=== PATIENT | male | born 1955 | race Caucasian/White ===

== ENCOUNTER 2019-08-30 05:42 | Outpatient (CLI) | payer OTHER ==
[~2019-08-30] VITALS: Ht 188 cm; Wt 98.7 kg
== END 2019-08-30 10:30 | disposition home or self-care (01) ==
LOC: PREOP 05:42
PROVIDERS: ATTEND Surgery
DX: Z01.818 Encounter for other preprocedural examination (principal)

== ENCOUNTER 2019-09-01 06:57 | Day surgery (SDC) | payer OTHER ==
[~2019-09-01] VITALS: Ht 188 cm; Wt 98.7 kg
[2019-09-01] VITALS (13 sets, daily range): BP systolic 115–147; BP diastolic 74–92
[2019-09-01] MEDS ORDERED: LACTATED RINGERS 1,000 ML IV PRN (07:28)
[2019-09-01] MEDS ORDERED: ceFAZolin 2 GM IV Premixed 50 ML IV ONE (07:30)
[2019-09-01 07:39] LABS: BASOPHILS % (AUTO) 1 % (0-10); EOSINOPHILS # (AUTO) 0.1 10^3/uL (0.0-0.3); EOSINOPHILS % (AUTO) 2 % (0-10); HEMATOCRIT 45 % (40-54); HEMOGLOBIN 15.5 G/DL (13.3-17.7); LYMPHOCYTES # (AUTO) 1.1 X 10^3 (1.0-4.0); LYMPHOCYTES % (AUTO) 16 % (12-44); MEAN CORPUSCULAR HEMOGLOBIN 31 PG (25-34); MEAN CORPUSCULAR HGB CONC 35 G/DL (32-36); MEAN CORPUSCULAR VOLUME 88 FL (80-99); MEAN PLATELET VOLUME 9.7 FL (7.4-10.4); MONOCYTES # (AUTO) 0.6 X 10^3 (0.0-1.0); MONOCYTES % (AUTO) 9 % (0-12); NEUTROPHILS % (AUTO) 73 % (42-75); PLATELET COUNT 233 10^3/uL (130-400); RED CELL DISTRIBUTION WIDTH 12.4 % (10.0-14.5); WHITE BLOOD COUNT 6.9 10^3/uL (4.3-11.0)
[2019-09-01] MEDS ORDERED: BUP/EPI 0.5% 1:200,000 (SENSORCAINE) 30 ML VIAL ONE (07:53)
[2019-09-01] MEDS ORDERED: MIDAZOLAM 2 MG/2 ML (VERSED) VIAL ONE (08:06)
[2019-09-01] MEDS ORDERED: ONDANSETRON 4 MG/2 ML (SDV) Z0FRAN ONE (08:06)
[2019-09-01] MEDS ORDERED: LIDOCAINE PF 2% 5 ML (XYLOCAINE) VIAL ONE (08:06)
[2019-09-01] MEDS ORDERED: fentaNYL INJECTION 100 MCG/2 ML AMP ONE (08:06)
[2019-09-01] MEDS ORDERED: proPOfol 200 MG/20 ML (DIPRIVAN) VIAL IV ONE (08:06)
[2019-09-01] MEDS ORDERED: ROCURONIUM 10 MG/ML 5 ML SYRINGE IV ONE (08:06)
[2019-09-01] MEDS ORDERED: SEVOFLURANE (ULTANE) 15 ML INHAL SOLN ONE ×5 (08:07→10:20)
--- NOTE | 2019-09-01 08:20 | Progress Note-Pre Operative ---
Pre-Operative Progress Note H&P Reviewed The H&P was reviewed, patient examined and no changes noted. Date Seen by Provider: Sep 01, 2019 Time Seen by Provider: 08:20 Date H&P Reviewed: Sep 01, 2019 Time H&P Reviewed: 08:15 Pre-Operative Diagnosis: Right Inguinal hernia and Screening colonoscopy GOOD HUERTAS APRN Sep 01, 2019 08:20
[2019-09-01] MEDS ORDERED: HYDR-3816 PO (08:23)
--- NOTE | 2019-09-01 08:23 | Discharge Inst-Surgical ---
D/C Lap Instructions-KIDO Reconcile Patient Problems Problems Reviewed?: Yes New, Converted, or Re-Newed RX: RX on Chart Follow Up Appt in 2 weeks Activity as tolerated No driving for 24 hours No driving while on pain medications Incentive Spirometry use every 2 hours while awake Regular Diet Symptoms to Report: Fever over 101 degree F, Nausea/Vomiting Infection Signs and Symptoms to report: Increased redness, Foul odor of wound, Increased drainage Bathing instructions: May shower Operative Area Clean/Dry; Keep incision clean/dry If any problems/questions: Contact your physician or go to Emergency Room GOOD HUERTAS APRN Sep 01, 2019 08:23
[2019-09-01] MEDS ORDERED: ACETAMINOPHEN 325 MG TABLET PO PRN (08:30)
[2019-09-01] MEDS ORDERED: HYDROcodone/APAP 5 MG/325 MG (LORTAB) TAB PO ONE (08:30)
[2019-09-01] MEDS ORDERED: morphine INJ 10 MG/ML 1ML (SYR OR VIAL) IVP PRN (08:30)
[2019-09-01] MEDS ORDERED: ONDANSETRON 4 MG/2 ML (SDV) Z0FRAN IVP PRN ×2 (08:30→10:45)
--- NOTE | 2019-09-01 10:21 | Progress Note-Post Operative ---
Post-Operative Progess Note Surgeon (s)/Warp Dresser (s) Surgeon Dr. Spencer Reyes M.D. Warp Dresser: Mono Huertas APRN Pre-Operative Diagnosis Right Inguinal hernia and Screening colonoscopy Post-Operative Diagnosis Right direct inguinal hernia, Normal colon and rectum Procedure & Operative Findings Date of Procedure 09/01/19 Procedure Performed/Findings Laparoscopic right inguinal hernia repair with mesh and screening colonoscopy Anesthesia Type GET Estimated Blood Loss Estimated blood loss (mL): Minimal Specimens/Packing Specimens Removed None MONO HUERTAS WATERSHED MANAGER Sep 01, 2019 10:21
[2019-09-01] MEDS ORDERED: MEPERIDINE (DEMEROL) INJ 50 MG/ML IVP ONE (10:45)
[2019-09-01] MEDS ORDERED: morphine INJ 10 MG/ML 1ML (SYR OR VIAL) IVP ONE (10:45)
[2019-09-01] MEDS ORDERED: PROMETHAZINE INJ 25 MG/ML (PHENERGAN) AMP IVP ONE (10:45)
[2019-09-01] MEDS ORDERED: KETOROLAC 30 MG/ML VIAL IVP ONE (10:45)
[2019-09-01] MEDS ORDERED: HYDROmorphone 2 MG/ML VIAL (DILAUDID) IV ONE (10:45)
[2019-09-01] MEDS ORDERED: KETOROLAC 30 MG/ML VIAL ONE (10:51)
[2019-09-01] MEDS ORDERED: HYDROcodone/APAP 5 MG/325 MG (LORTAB) TAB ONE (12:38)
--- NOTE | 2019-09-01 13:26 | OPERATIVE REPORT ---
DATE OF SERVICE: 09/01/2019 PREOPERATIVE DIAGNOSES: 1. Symptomatic right inguinal hernia. 2. Screening colonoscopy. POSTOPERATIVE DIAGNOSES: 1. Symptomatic reducible right direct inguinal hernia. 2. Normal rectum and colon. PROCEDURES: 1. Laparoscopic right inguinal hernia repair with mesh. 2. Colonoscopy. SURGEON: Christian Champion MD TRAVEL COUNSELOR: Mono Raza APRN ANESTHESIA: General endotracheal. ESTIMATED BLOOD LOSS: Minimal. FINDINGS: Right direct inguinal hernia, nothing within the hernia sac. Normal rectum and colon. DISPOSITION: The patient tolerated the procedure well. 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 The lesion grew larger in size. He states he is otherwise doing well, having normal bowel movements and tolerating a regular diet. He is also in need of a screening colonoscopy. He has not had a colonoscopy up to this point in his life. He does not report any red blood per rectum nor any dark tarry stools as well as no family history of colon cancer. DESCRIPTION OF PROCEDURE: The patient was brought to the operating room, laid supine on the table. The infraumbilical rim was then anesthetized using 0.5% Marcaine with epinephrine and a transverse skin incision made using a 15 blade. The abdominal wall was then retracted anteriorly using a sharp towel clamp and a Veress needle inserted with low opening pressure of 0 mmHg and the abdomen was insufflated to 15 mmHg pressure. The Veress needle removed and a 10 mm XL trocar placed followed by a 10 mm 45-degree angle laparoscope visualizing the peritoneal cavity. A 4-quadrant abdominal exploration was performed. A significant sized right direct inguinal hernia identified. There was nothing within the hernia sac. There was no left inguinal hernia component. We then proceeded to place bilateral 5 mm ports under direct visualization after the skin and peritoneal lining were anesthetized using 0.5% Marcaine with epinephrine and a transverse skin incision was made using a 15 blade. The patient was then placed in Trendelenburg position. A mesenteric lining was then opened laterally towards the conjoint tendon and inguinal ligament laterally. We then proceeded medially to Joseph's ligament. We then proceeded with dissection of the entire hernia sac using blunt dissection as well as the Sonicision with visualization of good hemostasis. The cord and its surrounding contents identified and spared throughout the process. Good hemostasis was observed and a large 3DMax polypropylene mesh was placed into the peritoneal cavity through the 10 mm port site. The mesh was then tacked to Joseph's ligament medially and conjoint tendon laterally. The entire peritoneal lining was then placed over the mesh and a few absorbable tacks placed to hold this in place with visualization of good hemostasis. The 10 mm port site fascia and peritoneum were then closed under direct visualization using a Yaakov-Luly device and 0 Vicryl suture. The abdomen was desufflated and remaining ports removed. All skin incisions were closed using 4-0 Monocryl running subcuticular sutures. Under the same anesthesia, we then proceeded with colonoscopy portion of the procedure. The patient was then placed in frog leg position and a digital rectal examination was performed, which did not reveal any significant hemorrhoids. Normal sphincter tone was felt and the prostate gland was palpable and appeared normal. The endoscope was then intubated to the anus and rectum gently insufflated. The endoscope was then advanced to the valves of Wiggins of the rectum with no polyps or any neoplasms identified. We then proceeded through the sigmoid colon where no diverticulosis identified. The endoscope was then advanced to the remainder of the descending, transverse and ascending colon to the cecum. These segments were normal. There were no polyps or any neoplasms identified throughout the colon or rectum. Endoscope was then slowly withdrawn while taking a second look and suctioning residual air with no additional findings. The patient tolerated the procedure well. We will recommend continued medical management with a high fiber diet with at least 30 grams of fiber daily as well as significant amounts of water to promote soft stools on a daily basis. He does not need another colonoscopy for another 10 years. Job ID: [id number] DocumentID: [id number] Dictated Date: 09/01/2019 10:40:36 Winch Runner Date: 09/01/2019 13:25:57 Dictated By: CHRISTIAN CHAMPION MD
--- NOTE | 2019-09-01 14:15 | Anesthesia-General Post-Op ---
General Patient Condition Mental Status/LOC: Same as Preop Cardiovascular: Satisfactory Nausea/Vomiting: Absent Respiratory: Satisfactory Pain: Controlled Complications: Absent Post Op Complications Complications None Follow Up Care/Instructions Patient Instructions None needed. Anesthesia/Patient Condition Patient Condition Patient was seen after the procedure and he was doing well, no complaints, stable vital signs, no apparent adverse anesthesia problems. KATE BURNS DO Sep 01, 2019 14:15
== END 2019-09-01 13:05 | disposition home or self-care (01) ==
LOC: SDC 06:57
PROVIDERS: ATTEND Surgery
DX: Z12.11 Encounter for screening for malignant neoplasm of colon (principal); K40.90 Unilateral inguinal hernia, without obstruction or gangrene, not specified as recurrent; K21.9 Gastro-esophageal reflux disease without esophagitis; F17.290 Nicotine dependence, other tobacco product, uncomplicated; Z82.49 Family history of ischemic heart disease and other diseases of the circulatory system
CPT/HCPCS: 36415; 85025; 87081

== ENCOUNTER 2020-08-30 10:21 | Observation (INO) | payer OTHER ==
[~2020-08-30] VITALS: Ht 188 cm; Wt 98.6 kg
[~2020-08-30 10:21] MED LIST: HYDR-34 PO
--- NOTE | 2020-08-30 10:35 | ED General ---
General Stated Complaint: IRREGULAR HEART BEAT/SOB Source of Information: Patient Exam Limitations: No Limitations History of Present Illness Date Seen by Provider: Aug 30, 2020 Time Seen by Provider: 10:32 Initial Comments To ER with reports of palpitations and shortness of breath. Has had a slight cough. 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 He doesn't have a primary care provider so he presented to [facility] urgent care. He was given aspirin and referred to the emergency room. He did povidone swab there that was negative. His symptoms began yesterday. No fevers. Takes no medications.Given 5 baby aspirin at [facility] urgent care he states. He does have chest pressure, describes it as a heaviness as if it's difficult to take a deep breath but states "I don't have chest pain". Timing/Duration: 1-2 Days Severity: Moderate Associated Systoms: Shortness of Air Allergies and Home Medications Allergies Coded Allergies: No Known Drug Allergies (Unverified , 08/30/19) Home Medications Hydrocodone Bit/Acetaminophen 1 Each Tablet, 1-2 TAB PO Q4H Prescribed by: GOOD HUERTAS on 09/01/19 0823 Patient Home Medication List Home Medication List Reviewed: Yes Review of Systems Review of Systems Constitutional: see HPI; No chills, No fever EENTM: see HPI Respiratory: no symptoms reported Cardiovascular: no symptoms reported Genitourinary: no symptoms reported Musculoskeletal: no symptoms reported Skin: no symptoms reported Psychiatric/Neurological: No Symptoms Reported Hematologic/Lymphatic: No Symptoms Reported Immunological/Allergic: no symptoms reported Past Wdqnvlj-Ootpuw-Achalf Hx Patient Social History Recent Foreign Travel: No Contact w/Someone Who Travel: No Recent Hopitalizations: No Seasonal Allergies Seasonal Allergies: No Past Medical History Surgeries: No Respiratory: No Currently Using CPAP: No Currently Using BIPAP: No Cardiac: No (murmur when young) Neurological: No Genitourinary: No Gastrointestinal: No Musculoskeletal: No Endocrine: No HEENT: No Cancer: No Psychosocial: No Integumentary: No Blood Disorders: No Physical Exam Vital Signs Vital Signs - First Documented 08/30/20 10:21 Temp 36.6 Pulse 112 Resp 18 B/P (MAP) 138/93 (108) Pulse Ox 98 O2 Delivery Room Air Capillary Refill : Height, Weight, BMI Height: '" Weight: lbs. oz. kg; 27.92 BMI Method: General Appearance: No Apparent Distress, WD/WN Eyes: Bilateral Eye Normal Inspection, Bilateral Eye PERRL, Bilateral Eye EOMI Neck: Full Range of Motion, Normal Inspection Respiratory: No Accessory Muscle Use, No Respiratory Distress Cardiovascular: Irregularly Irregular, Other (atrial fibrillation with a rate in the 80s) Gastrointestinal: Normal Bowel Sounds, Non Tender, Soft Extremity: Normal Capillary Refill, Normal Inspection Neurologic/Psychiatric: Alert, Oriented x3 Skin: Normal Color, Warm/Dry Progress/Results/Core Measures Suspected Sepsis SIRS Temperature: Pulse: Respiratory Rate: Laboratory Tests 08/30/20 10:29: White Blood Count 10.7 Blood Pressure / Mean: Laboratory Tests 08/30/20 10:29: Creatinine 1.10, INR Comment 1.0, Platelet Count 286, Total Bilirubin 0.7 Results/Orders Lab Results Laboratory Tests Test 08/30/20 10:29 Range/Units White Blood Count 10.7 4.3-11.0 10^3/uL Red Blood Count 5.02 4.30-5.52 10^6/uL Hemoglobin 15.3 13.3-17.7 g/dL Hematocrit 46 40-54 % Mean Corpuscular Volume 92 80-99 fL Mean Corpuscular Hemoglobin 31 25-34 pg Mean Corpuscular Hemoglobin Concent 33 32-36 g/dL Red Cell Distribution Width 12.0 10.0-14.5 % Platelet Count 286 130-400 10^3/uL Mean Platelet Volume 9.5 9.0-12.2 fL Immature Granulocyte % (Auto) 1 % Neutrophils (%) (Auto) 74 42-75 % Lymphocytes (%) (Auto) 16 12-44 % Monocytes (%) (Auto) 8 0-12 % Eosinophils (%) (Auto) 1 0-10 % Basophils (%) (Auto) 1 0-10 % Neutrophils # (Auto) 7.9 H 1.8-7.8 10^3/uL Lymphocytes # (Auto) 1.8 1.0-4.0 10^3/uL Monocytes # (Auto) 0.8 0.0-1.0 10^3/uL Eosinophils # (Auto) 0.1 0.0-0.3 10^3/uL Basophils # (Auto) 0.1 0.0-0.1 10^3/uL Immature Granulocyte # (Auto) 0.1 0.0-0.1 10^3/uL Prothrombin Time 13.4 12.2-14.7 SEC INR Comment 1.0 0.8-1.4 Activated Partial Thromboplast Time 27 24-35 SEC D-Dimer < 0.27 0.00-0.49 UG/ML Sodium Level 142 135-145 MMOL/L Potassium Level 4.2 3.6-5.0 MMOL/L Chloride Level 105 98-107 MMOL/L Carbon Dioxide Level 26 21-32 MMOL/L Anion Gap 11 5-14 MMOL/L Blood Urea Nitrogen 19 H 7-18 MG/DL Creatinine 1.10 0.60-1.30 MG/DL Estimat Glomerular Filtration Rate > 60 BUN/Creatinine Ratio 17 Glucose Level 155 H 70-105 MG/DL Calcium Level 9.0 8.5-10.1 MG/DL Corrected Calcium 8.8 8.5-10.1 MG/DL Magnesium Level 1.8 1.6-2.4 MG/DL Total Bilirubin 0.7 0.1-1.0 MG/DL Aspartate Amino Transf (AST/SGOT) 21 5-34 U/L Alanine Aminotransferase (ALT/SGPT) 35 0-55 U/L Alkaline Phosphatase 58 40-136 U/L Myoglobin 59.9 10.0-92.0 NG/ML Troponin I < 0.028 <0.028 NG/ML B-Type Natriuretic Peptide 218.9 H <100.0 PG/ML Total Protein 6.7 6.4-8.2 GM/DL Albumin 4.3 3.2-4.5 GM/DL My Orders Orders - JEN LEÓN APRN Cbc With Automated Diff (08/30/20 10:31) Magnesium (08/30/20 10:31) Chest 1 View, Ap/Pa Only (08/30/20 10:31) Ekg Tracing (08/30/20 10:31) Comprehensive Metabolic Panel (08/30/20 10:31) Myoglobin Serum (08/30/20 10:31) Protime With Inr (08/30/20 10:31) Partial Thromboplastin Time (08/30/20 10:31) O2 (08/30/20 10:31) Monitor-Rhythm Ecg Trace Only (08/30/20 10:31) Lipid Panel (08/31/20 06:00) Ed Iv/Invasive Line Start (08/30/20 10:31) BNP (08/30/20 10:31) Fibrin Degradation Products (08/30/20 10:31) Troponin I (08/30/20 10:31) Metoprolol Tartrate Injection (Lopressor (08/30/20 10:45) Medications Given in ED Current Medications Medications Dose Ordered Sig/Rita Route Start Time Stop Time Status Last Admin Dose Admin Metoprolol Tartrate 5 mg ONCE ONCE IV 08/30/20 10:45 08/30/20 10:46 DC 08/30/20 10:46 5 MG Vital Signs/I&O 08/30/20 10:21 Temp 36.6 Pulse 112 Resp 18 B/P (MAP) 138/93 (108) Pulse Ox 98 O2 Delivery Room Air Capillary Refill : Departure Communication (Admissions) Time/Spoke to Admitting Phy: 11:[address] Valverde, patient does report quite a bit of caffeine intake, that would be the most likely cause of his atrial bigeminy but with the chest pressure that he describes as if it's difficult to take a deep breath, this does more further workup for ischemia. Impression Primary Impression: Atrial bigeminy Additional Impression: Chest pressure Disposition: ADMITTED INPATIENT Condition: Stable Admissions Decision to Admit Reason: Admit from ER (General) Decision to Admit/Date: Aug 30, 2020 Time/Decision to Admit Time: 11:26 Departure-Patient Inst. Referrals: NO,LOCAL PHYSICIAN (PCP) Primary Care Physician JEN LEÓN APRN Aug 30, 2020 10:35
[2020-08-30 10:38] LABS: BASOPHILS # (AUTO) 0.1 10^3/uL (0.0-0.1); BASOPHILS % (AUTO) 1 % (0-10); EOSINOPHILS # (AUTO) 0.1 10^3/uL (0.0-0.3); EOSINOPHILS % (AUTO) 1 % (0-10); HEMATOCRIT 46 % (40-54); HEMOGLOBIN 15.3 g/dL (13.3-17.7); LYMPHOCYTES # (AUTO) 1.8 10^3/uL (1.0-4.0); LYMPHOCYTES % (AUTO) 16 % (12-44); MEAN CORPUSCULAR HEMOGLOBIN 31 pg (25-34); MEAN CORPUSCULAR HGB CONC 33 g/dL (32-36); MEAN CORPUSCULAR VOLUME 92 fL (80-99); MEAN PLATELET VOLUME 9.5 fL (9.0-12.2); MONOCYTES # (AUTO) 0.8 10^3/uL (0.0-1.0); MONOCYTES % (AUTO) 8 % (0-12); NEUTROPHILS # (AUTO) 7.9 10^3/uL (1.8-7.8); NEUTROPHILS % (AUTO) 74 % (42-75); PLATELET COUNT 286 10^3/uL (130-400); WHITE BLOOD COUNT 10.7 10^3/uL (4.3-11.0)
[2020-08-30] MEDS ORDERED: meTOprolol 5 MG/5 ML (LOPRESSOR) VIAL IV ONE ×2 (10:45→12:15)
[2020-08-30 10:46] LABS: ALBUMIN 4.3 GM/DL (3.2-4.5)
[2020-08-30 10:47] LABS: CHLORIDE 105 MMOL/L (98-107); POTASSIUM 4.2 MMOL/L (3.6-5.0); PROTHROMBIN TIME PATIENT 13.4 SEC (12.2-14.7); SODIUM 142 MMOL/L (135-145)
[2020-08-30 10:49] LABS: GLUCOSE 155 MG/DL (70-105); TOTAL PROTEIN 6.7 GM/DL (6.4-8.2)
[2020-08-30 10:50] LABS: CARBON DIOXIDE 26 MMOL/L (21-32)
[2020-08-30 10:51] LABS: BILIRUBIN,TOTAL 0.7 MG/DL (0.1-1.0)
[2020-08-30 10:52] LABS: ALKALINE PHOSPHATASE 58 U/L (40-136)
[2020-08-30 10:53] LABS: GFR ESTIMATED > 60
[2020-08-30 10:54] LABS: BUN/CREATININE RATIO 17
[2020-08-30 10:55] LABS: ALANINE AMINOTRANSFERASE 35 U/L (0-55); MAGNESIUM 1.8 MG/DL (1.6-2.4)
--- NOTE | 2020-08-30 11:03 | Diagnostic Imaging Report ---
INDICATION: Chest tightness FINDINGS: The lungs are clear. No failure, effusion or pneumothorax. IMPRESSION: No acute appearing abnormality. Dictated by: Dictated on workstation # [id number]
--- NOTE | 2020-08-30 12:08 | NUR ---
DR BACON HERE ECHO DONE AT BEDSIDE.
--- NOTE | 2020-08-30 12:27 | NUR ---
PATIENT CALLED AND UPDATED HER
--- NOTE | 2020-08-30 13:05 | Consultation-Cardiology ---
HPI-Cardiology Cardiology Consultation Date of Consultation 08/30/20 Date of Admission Time Seen by Provider: 13:00 Indication: chest pain HPI 64 years old gentleman with no significant past medical history, has been having increasing dyspnea on exertion, went to the urgent care for evaluation where he was noted to have frequent irregular heartbeat. Was sent to the emergency room, in the ER he was noted to have atrial bigeminy and atrial couplets. No shortness of breath at that time but he is been having some chest discomfort and feeling heaviness in his chest. No syncope or near syncopal episodes. No claudications. Home Medications & Allergies Allergies: Coded Allergies: No Known Drug Allergies (Unverified , 08/30/19) Home Medication List Reviewed: Yes BOR-Wnqufa-Uvmwss Hx Patient Social History Marital Status: Employed/Student: employed Alcohol Use: Denies Use Recreational Drug Use: No Smoking Status: Never a Smoker Recent Foreign Travel: No Recent Infectious Disease Expo: No Recent Hopitalizations: No Family Medical History Family Medical Hx Noncontributory Review of Systems-General Review of Systems Constitutional: see HPI; No chills, No fever EENTM: see HPI Respiratory: no symptoms reported, see HPI Cardiovascular: see HPI, chest pain; No edema, No Hx of Intervention; palpitations; No syncope, No vascular heart diseas, No other Gastrointestinal: see HPI Genitourinary: no symptoms reported, see HPI Musculoskeletal: no symptoms reported, see HPI Skin: no symptoms reported, see HPI Psychiatric/Neurological: No Symptoms Reported, See HPI Reviewed Test Results Reviewed Test Results Lab Laboratory Tests Test 08/30/20 10:29 Range/Units White Blood Count 10.7 4.3-11.0 10^3/uL Red Blood Count 5.02 4.30-5.52 10^6/uL Hemoglobin 15.3 13.3-17.7 g/dL Hematocrit 46 40-54 % Mean Corpuscular Volume 92 80-99 fL Mean Corpuscular Hemoglobin 31 25-34 pg Mean Corpuscular Hemoglobin Concent 33 32-36 g/dL Red Cell Distribution Width 12.0 10.0-14.5 % Platelet Count 286 130-400 10^3/uL Mean Platelet Volume 9.5 9.0-12.2 fL Immature Granulocyte % (Auto) 1 % Neutrophils (%) (Auto) 74 42-75 % Lymphocytes (%) (Auto) 16 12-44 % Monocytes (%) (Auto) 8 0-12 % Eosinophils (%) (Auto) 1 0-10 % Basophils (%) (Auto) 1 0-10 % Neutrophils # (Auto) 7.9 H 1.8-7.8 10^3/uL Lymphocytes # (Auto) 1.8 1.0-4.0 10^3/uL Monocytes # (Auto) 0.8 0.0-1.0 10^3/uL Eosinophils # (Auto) 0.1 0.0-0.3 10^3/uL Basophils # (Auto) 0.1 0.0-0.1 10^3/uL Immature Granulocyte # (Auto) 0.1 0.0-0.1 10^3/uL Prothrombin Time 13.4 12.2-14.7 SEC INR Comment 1.0 0.8-1.4 Activated Partial Thromboplast Time 27 24-35 SEC D-Dimer < 0.27 0.00-0.49 UG/ML Sodium Level 142 135-145 MMOL/L Potassium Level 4.2 3.6-5.0 MMOL/L Chloride Level 105 98-107 MMOL/L Carbon Dioxide Level 26 21-32 MMOL/L Anion Gap 11 5-14 MMOL/L Blood Urea Nitrogen 19 H 7-18 MG/DL Creatinine 1.10 0.60-1.30 MG/DL Estimat Glomerular Filtration Rate > 60 BUN/Creatinine Ratio 17 Glucose Level 155 H 70-105 MG/DL Calcium Level 9.0 8.5-10.1 MG/DL Corrected Calcium 8.8 8.5-10.1 MG/DL Magnesium Level 1.8 1.6-2.4 MG/DL Total Bilirubin 0.7 0.1-1.0 MG/DL Aspartate Amino Transf (AST/SGOT) 21 5-34 U/L Alanine Aminotransferase (ALT/SGPT) 35 0-55 U/L Alkaline Phosphatase 58 40-136 U/L Myoglobin 59.9 10.0-92.0 NG/ML Troponin I < 0.028 <0.028 NG/ML B-Type Natriuretic Peptide 218.9 H <100.0 PG/ML Total Protein 6.7 6.4-8.2 GM/DL Albumin 4.3 3.2-4.5 GM/DL Physical Exam Physical Exam Vital Signs Vital Signs - First Documented 08/30/20 10:21 Temp 36.6 Pulse 112 Resp 18 B/P (MAP) 138/93 (108) Pulse Ox 98 O2 Delivery Room Air Capillary Refill : Less Than 3 Seconds Height, Weight, BMI Height: '" Weight: lbs. oz. kg; 27.00 BMI Method: General Appearance: No Apparent Distress, WD/WN Eyes: Bilateral Eye Normal Inspection, Bilateral Eye PERRL, Bilateral Eye EOMI Neck: Full Range of Motion, Normal Inspection Respiratory: No Accessory Muscle Use, No Respiratory Distress Cardiovascular: Irregularly Irregular, Other (atrial fibrillation with a rate in the 80s) Gastrointestinal: Normal Bowel Sounds, Non Tender, Soft Extremity: Normal Capillary Refill, Normal Inspection Neurologic/Psychiatric: Alert, Oriented x3 Skin: Normal Color, Warm/Dry A/P-Cardiology Admission Diagnosis Chest pain Palpitation Atrial bigeminy Shortness of breath Assessment/Plan Chest pain nonspecific etiology, atypical in presentation, abnormal EKG with frequent atrial premature contractions and atrial bigeminy and atrial couplets. Cardiovascular study is negative, mild elevation in BNP, echocardiogram was normal, I am planning to monitor history and then proceed with stress test. Palpitation, frequent atrial premature contractions, atrial bigeminy, improved after receiving IV Lopressor and recurred later. I will start him on Toprol-XL 25 mg daily, started on aspirin, continue to monitor, planning to evaluate exercise stress test Shortness of breath, reporting improvement at this time. I will evaluate TSH, CMP, CBC, cardiac enzymes. Clinical Quality Measures AMI/AHF: ASA po Prior to arrival: Yes (GIVEN AT URGENT CARE ) HEATHER HIGGINS MD Aug 30, 2020 13:05
[2020-08-30] MEDS ORDERED: NF-VITD400 PO (14:02)
[2020-08-30] MEDS ORDERED: CATHETER FLUSH 10 ML SYR IV PRN (14:15)
--- NOTE | 2020-08-30 14:30 | History & Physical-Hospitalist ---
YOKO COLLINS MED STUDENT 08/30/20 1430: History of Present Illness HPI/Chief Complaint CC: SOB and palpitations HPI: This is a 64 YO male who presented to urgent care for palpitations and SOB at rest. Pt was given 5 baby ASA in the urgent care and was referred to the ER. He was tested for COVID while at urgent care, which was negative. Pt states he has some mild chest discomfort and an occasional dry cough due to a tickle in his throat, but no fever, chills, or diaphoresis. Pt states he has had similar episodes of SOB and palpitations for "a while", but says they usually go away on their own. Today, he became concerned because it was not going away and he had some light-headedness this morning while getting dressed. Denies any medical problems, takes no medications, and has no PCP. Denies smoking or drug use, but notes some occasional EtOH. 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 Workup in the ER showed negative CXR and troponin. EKG showed atrial bigeminey with PAC's. BNP is 218.9. Dr. Valverde consulted, who will work up to rule out ischemia. Echo by him was normal. Source: patient Exam Limitations: no limitations Date Seen 08/30/20 Time Seen by a Provider: 12:00 Attending Physician Shelby Davalos DO PCP No,Local Physician Referring Physician Date of Admission Aug 30, 2020 at 12:00 Home Medications & Allergies Home Medications Reviewed patient Home Medication Reconciliation performed by pharmacy medication reconciliations pilot plant technician and/or nursing. Patients Allergies have been reviewed. Allergies Allergies Coded Allergies No Known Drug Allergies (Apzprmcqef21/8/19) Past Ibbvtzj-Pptokc-Xvxwbe Hx Patient Social History Marrital Status: Employed/Student: employed Alcohol Use: Denies Use Recreational Drug Use: No Smoking Status: Never a Smoker Recent Foreign Travel: No Contact w/other who traveled: No Recent Hopitalizations: No Recent Infectious Disease Expo: No Seasonal Allergies Seasonal Allergies: No Past Medical History Currently Using CPAP: No Currently Using BIPAP: No History of Blood Disorders: No Review of Systems Constitutional: No chills, No fever EENTM: No blurred vision, No double vision Respiratory: cough (mild occasional), short of breath Cardiovascular: palpitations; No syncope Gastrointestinal: No abdominal pain, No vomiting Genitourinary: No dysuria, No frequency Musculoskeletal: No back pain, No joint pain Skin: No change in color, No change in hair/nails Psychiatric/Neurological: Denies Anxiety, Denies Depressed All Other Systems Reviewed Negative Unless Noted: Yes Physical Exam Physical Exam Vital Signs Vital Signs - First Documented 08/30/20 10:21 Temp 36.6 Pulse 112 Resp 18 B/P (MAP) 138/93 (108) Pulse Ox 98 O2 Delivery Room Air Capillary Refill : Less Than 3 Seconds Height, Weight, BMI Height: '" Weight: lbs. oz. kg; 27.64 BMI Method: General Appearance: No Apparent Distress, WD/WN Eyes: Bilateral Eye Normal Inspection, Bilateral Eye EOMI HEENT: PERRL/EOMI, Normal ENT Inspection Neck: Normal Inspection, Supple Respiratory: Lungs Clear, Normal Breath Sounds, No Accessory Muscle Use, No Respiratory Distress Cardiovascular: No Edema, Normal Peripheral Pulses, Other (atrial bigeminy on the monitor and per EKG) Gastrointestinal: Non Tender, Soft; No Distended Extremity: Normal Capillary Refill, Normal Inspection, No Calf Tenderness, No Pedal Edema Neurologic/Psychiatric: Alert, Oriented x3, No Motor/Sensory Deficits, Normal Mood/Affect Skin: Normal Color, Warm/Dry Lymphatic: No Adenopathy Results Results/Procedures Labs Laboratory Tests 08/30/20 10:29 Patient resulted labs reviewed. Imaging: Reviewed Imaging Report Assessment/Plan Admission Diagnosis dyspnea, atrial bigeminy Admission Status: Inpatient Order (span 2 midnights) Reason for Inpatient Admission: cardiac workup Assessment and Plan dyspnea palpitations atrial bigeminey abnormal EKG elevated BNP Lovenox for DVT prophylaxis Metoprolol Workup by Dr. Valverde-exercise stress test tomorrow monitor labs Clinical Quality Measures AMI/AHF: ASA po Prior to arrival: Yes (GIVEN AT URGENT CARE ) DVT/VTE Risk/Contraindication: Risk Factor Score Per Nursin RFS Level Per Nursing on Admit: 2=Moderate SHELBY DAVALOS DO 08/30/20 2301: Past Izsymlr-Owfpas-Cflshy Hx Past Med/Social Hx: Reviewed Nursing Past Med/Soc Hx, Reviewed and Corrections made Patient Social History Marrital Status: Employed/Student: employed Alcohol Use: Denies Use Smoking Status: Never a Smoker Review of Systems Constitutional: see HPI Respiratory: short of breath Cardiovascular: palpitations Physical Exam Physical Exam General Appearance: No Apparent Distress Respiratory: Lungs Clear Cardiovascular: Tachycardia Assessment/Plan Admission Diagnosis Atrial bigeminy with palpitations Admission Status: Observation Diagnosis/Problems Diagnosis/Problems (1) Atrial bigeminy Status: Acute (2) Chest pressure Status: Acute Supervisory-Addendum Brief Verification & Attestation Participated in pt care: history, MDM, physical Personally performed: exam, history, MDM, supervision of care Care discussed with: Medical Student Procedures: n/a Results interpretation: Verified all documentation Verification and Attestation of Medical Student E/M Service A medical student performed and documented this service in my presence. I reviewed and verified all information documented by the medical student and made modifications to such information, when appropriate. I personally performed the physical exam and medical decision making. Shelby Davalos, Aug 30, 2020,23:01 YOKO COLLINS MED STUDENT Aug 30, 2020 14:30 SHELBY DAVALOS DO Aug 30, 2020 23:01
[2020-08-30] MEDS: ENOXAPARIN 100 MG/1 ML (LOVENOX) SYR SC SCH (14:43)
[2020-08-30] MEDS: CATHETER FLUSH 10 ML SYR IV SCH ×2 (14:44→22:11)
[2020-08-30 16:32] VITALS: BP 116/68
[2020-08-30 20:00] VITALS: BP 121/82
[2020-08-31] VITALS: BP 110/64
[2020-08-31] MEDS: ENOXAPARIN 100 MG/1 ML (LOVENOX) SYR SC SCH (02:06)
[2020-08-31 04:00] VITALS: BP 119/71
[2020-08-31] MEDS: CATHETER FLUSH 10 ML SYR IV SCH (06:12)
[2020-08-31 06:31] LABS: HEMOGLOBIN 13.8 g/dL (13.3-17.7); MEAN PLATELET VOLUME 9.9 fL (9.0-12.2); WHITE BLOOD COUNT 7.2 10^3/uL (4.3-11.0)
[2020-08-31 06:47] LABS: ALBUMIN 3.6 GM/DL (3.2-4.5); CHLORIDE 106 MMOL/L (98-107); SODIUM 138 MMOL/L (135-145)
[2020-08-31 06:48] LABS: CALCIUM 8.4 MG/DL (8.5-10.1)
[2020-08-31 06:49] LABS: TRIGLYCERIDES 151 MG/DL (<150); VLDL CHOLESTEROL 30 MG/DL (5-40)
[2020-08-31 06:50] LABS: GLUCOSE 139 MG/DL (70-105); TOTAL PROTEIN 5.6 GM/DL (6.4-8.2)
[2020-08-31 06:51] LABS: CARBON DIOXIDE 25 MMOL/L (21-32)
[2020-08-31 06:53] LABS: ALKALINE PHOSPHATASE 47 U/L (40-136); CREATININE SERUM 0.98 MG/DL (0.60-1.30); GFR ESTIMATED > 60
[2020-08-31 06:54] LABS: CHOLESTEROL 184 MG/DL (< 200)
[2020-08-31 06:55] LABS: BUN/CREATININE RATIO 19
[2020-08-31 06:56] LABS: ALANINE AMINOTRANSFERASE 30 U/L (0-55); HDL CHOLESTEROL 38 MG/DL (40-60)
--- NOTE | 2020-08-31 07:56 | NUR ---
0700 - Patient taken for stress test via wheelchair by Head Of Merchandise Buying
--- NOTE | 2020-08-31 08:50 | NUR ---
during end of recovery of stress test had a lowered bp, upon disconnected from monitor and up to wheelchair became very lightheaded, pale, and diaphoretic. Laid back to bed flat, hr in 60's, bp 104/66. color returned, and cool washcloths applied. few minutes he felt better, color returned. after lying flat for 10 mins, lying bp 107/66, sitting bp, 113/70, standing 99/60. was notified
[2020-08-31] MEDS ORDERED: ASPIRIN E.C. 81 MG (ECOTRIN) TAB PO SCH (09:00)
[2020-08-31] MEDS ORDERED: NS IV 1000 ML 1,000 ML ONE (09:04)
[2020-08-31] MEDS ORDERED: NS IV 1000 ML 1,000 ML IV SCH (09:15)
--- NOTE | 2020-08-31 10:39 | Cardiology Stress Test Report ---
Stress Test Report Date of Procedure/Referring: Date of Procedure: Aug 31, 2020 PCP Shelby Davalos DO Admitting Physician No,Local Physician Indications: Chest pain Baseline Heart Rate: 64 Baseline Blood Pressure: Blood Pressure Systolic: 119 Blood Pressure Diastolic: 71 Vital Signs Date Time Temp Pulse Resp B/P (MAP) Pulse Ox O2 Delivery O2 Flow Rate FiO2 08/30/20 10:21 36.6 112 18 138/93 (108) 98 Room Air Baseline Vital Signs Vital Signs Date Time Temp Pulse Resp B/P (MAP) Pulse Ox O2 Delivery O2 Flow Rate FiO2 08/30/20 10:21 36.6 112 18 138/93 (108) 98 Room Air Baseline EKG: Baseline EKG: normal sinus rhythm Summary: After explaining the procedure and details to the patient, he signed the consent and was brought to the stress nuclear laboratory. Patient exercised on standard Jhonatan protocol, EKG, heart rate and blood pressure were monitored continuously, resting and stress doses of radio tracer were injected, imaging was acquired and reviewed in the short axis, horizontal long axis and vertical long axis views Patient was able to exercise for a total of 12 minutes on Jhonatan protocol, METs 12.3 Maximum heart rate 140 Maximum blood pressure 185/61 Stress EKG, Minimal nondiagnostic changes Recovery EKG, Return to baseline TID: 1.08 SSS: 2 SDS: 0 EF: 61 Conclusion: 1. Excellent exercise tolerance for a total of 12 minutes on standard Jhonatan protocol, 12.8 METs achieving 90 percent of maximum expected heart rate 2. Appropriate heart rate and blood pressure response to exercise returned to baseline during recovery 3. Transient episode of hypotension and dizziness late in recovery resolved with IV fluid 4. Minimal nondiagnostic EKG changes with upsloping ST depression 23 aVF V4 and V5 at peak stress level resolved during recovery 5. Diaphragmatic attenuation with fixed defect at the basal to mid inferior wall, typical male pattern with no significant ischemia or infarction on SPECT images 6. Normal left ventricular size, EF 61 percent HEATHER HIGGINS MD Aug 31, 2020 10:39
--- NOTE | 2020-08-31 10:41 | Cardiology Progress Note ---
Subjective Date Seen by Provider: Aug 31, 2020 Time Seen by Provider: 10:39 Subjective/Events-last exam Patient is laying down in bed, doing well, denied any chest pain or shortness of breath Review of Systems General: No Chills, No Night Sweats, No Fatigue, No Malaise, No Appetite, No Other HEENT: No Head Aches, No Visual Changes, No Eye Pain, No Ear Pain, No Dyspha rosalind, No Sinus Congestion, No Post Nasal Drip, No Sore Throat, No Other Pulmonary: No Dyspnea, No Cough, No Pleuritic Chest Pain, No Other Cardiovascular: No: Chest Pain, Palpitations, Orthopnea, Paroxysmal Noc. Dyspnea, Edema, Lt Headedness, Other Objective-Cardiology Exam Last Set of Vital Signs Vital Signs 08/31/20 07:00 Pulse 65 Capillary Refill : Less Than 3 Seconds I&O Intake and Output 08/30/20 23:59 Intake Total 150 ml Balance 150 ml Intake Oral 150 ml # Voids 2 Daily Weight Change No No General: Alert, Oriented X3, Cooperative HEENT: Atraumatic, PERRLA Neck: Supple, No JVD, No Thyromegaly Lungs: Clear to Auscultation, Normal Air Movement Heart: Regular Rate, Normal S1, Normal S2, No Murmurs Abdomen: Normal Bowel Sounds, Soft, No Tenderness, No Hepatosplenomegaly, No Masses Extremities: No Clubbing, No Cyanosis, No Edema, Normal Pulses, No Tenderness/Swelling Skin: No Rashes, No Breakdown, No Significant Lesion Neuro: Normal Gait, Normal Speech, Strength at 5/5 X4 Ext, Normal Tone, Sensation Intact Psych/Mental Status: Mental Status NL, Mood NL Results Lab Laboratory Tests 08/31/20 06:03 A/P-Cardiology Admission Diagnosis Chest pain Palpitation Atrial bigeminy Shortness of breath Assessment/Plan Chest pain nonspecific etiology, atypical in presentation, underwent exercise stress test for total of 12 minutes on standard Jhonatan protocol with no ischemia or infarction. Hyperlipidemia, LDL 138, recommend starting low-dose statin and monitor Palpitation, frequent atrial premature contractions, atrial bigeminy, improved after receiving IV Lopressor and recurred later. Started on Toprol-XL 25 mg daily, reporting mild dizziness and lightheadedness, I will continue to monitor Shortness of breath, reporting improvement at this time. Okay for discharge from cardiology standpoint and follow up as an outpatient Clinical Quality Measures AMI/AHF: ASA po Prior to arrival: Yes (GIVEN AT URGENT CARE ) DVT/VTE Risk/Contraindication: Risk Factor Score Per Nursin RFS Level Per Nursing on Admit: 2=Moderate HEATHER HIGGINS MD Aug 31, 2020 10:40
[2020-08-31] MEDS ORDERED: ASPI-1238 PO (10:42)
[2020-08-31] MEDS ORDERED: MTP25TSR PO (10:42)
[2020-08-31 11:37] VITALS: BP 137/80
[2020-08-31 12:00] VITALS: BP 112/74
--- NOTE | 2020-08-31 12:00 | Discharge Summary ---
Discharge Summary Hospital Course Was the Problem List Reviewed?: Yes Problems/Dx: (1) Atrial bigeminy Status: Acute (2) Chest pressure Status: Acute Hospital Course Date of Admission: Aug 30, 2020 at 12:00 Admission Diagnosis : Family Physician/Provider: Date of Discharge: 08/31/20 Discharge Diagnosis: atrial tachycardia, palpitations, HLP Hospital Course: Naveen Todd is a 64 YO male with no medical problems on no medications who presented to the ER yesterday with SOB and palpitations. Troponin and CXR were negative and EKG showed atrial bigeminy. Dr. Valverde was consulted, echo and stress test were unremarkable. His recommendation is to discharge home with Rx for 25 mg of Lopressor and for pt to take half a pill if sx return. Pt to start taking daily aspirin as well and follow up with cardiology outpatient and recheck lipid panel in 3 months. Pt agrees with plan and is stable for discharge. YOKO COLLINS STUDENT Labs and Pending Lab Test: Laboratory Tests 08/30/20 18:06: Troponin I < 0.028 08/31/20 06:03: Troponin I < 0.028, White Blood Count 7.2, Red Blood Count 4.52, Hemoglobin 13.8, Hematocrit 42, Mean Corpuscular Volume 92, Mean Corpuscular Hemoglobin 31, Mean Corpuscular Hemoglobin Concent 33, Red Cell Distribution Width 11.9, Platelet Count 210, Mean Platelet Volume 9.9, Sodium Level 138, Potassium Level 4.0, Chloride Level 106, Carbon Dioxide Level 25, Anion Gap 7, Blood Urea Nitrogen 19H, Creatinine 0.98, Estimat Glomerular Filtration Rate > 60, BUN/Creatinine Ratio 19, Glucose Level 139H, Calcium Level 8.4L, Corrected Calcium 8.7, Total Bilirubin 1.0, Aspartate Amino Transf (AST/SGOT) 20, Alanine Aminotransferase (ALT/SGPT) 30, Alkaline Phosphatase 47, Total Protein 5.6L, Albumin 3.6, Triglycerides Level 151H, Cholesterol Level 184, LDL Cholesterol Direct 138H, VLDL Cholesterol 30, HDL Cholesterol 38L Home Meds Active Reported Vitamin D3 (Vitamin D) 10 Mcg Tablet 400 Mcg PO DAILY Assessment/Pt Instructions Dr Murphy in 2 weeks to establish care Discharge Planning: <30 minutes discharge planning Discharge Instructions Discharge Diet: No Restrictions Discharge Physical Examination Vital Signs Vital Signs Date Time Temp Pulse Resp B/P (MAP) Pulse Ox O2 Delivery O2 Flow Rate FiO2 08/31/20 11:37 36.4 55 17 137/80 (99) 99 Room Air General Appearance: No Apparent Distress, WD/WN Respiratory: Lungs Clear Cardiovascular: Regular Rate, Rhythm Allergies: Coded Allergies: No Known Drug Allergies (Unverified , 08/30/19) Discharge Summary Date of Admission Aug 30, 2020 at 12:00 Date of Discharge Discharge Date: Aug 31, 2020 Admission Diagnosis Atrial bigeminy with palpitations Discharge Diagnosis (1) Atrial bigeminy Status: Acute (2) Chest pressure Status: Acute Clinical Quality Measures AMI/AHF: ASA po Prior to arrival: Yes (GIVEN AT URGENT CARE ) DVT/VTE Risk/Contraindication: Risk Factor Score Per Nursin RFS Level Per Nursing on Admit: 2=Moderate LUCIA MURPHY DO Aug 31, 2020 12:00
--- NOTE | 2020-08-31 12:08 | NUR ---
Pt is [employer] and getting ready for discharge. Sodder offered blessing.
--- NOTE | 2020-08-31 12:15 | Progress Note ---
YOKO COLLINS MED STUDENT 08/31/20 1215: Progress Note Naveen Todd is a 64 YO male with no medical problems on no medications who presented to the ER yesterday with SOB and palpitations. Troponin and CXR were negative and EKG showed atrial bigeminy. Dr. Valverde was consulted, echo and stress test were unremarkable. His recommendation is to discharge home with Rx for 25 mg of Lopressor and for pt to take half a pill if sx return. Pt to start taking daily aspirin as well and follow up with cardiology outpatient and recheck lipid panel in 3 months. Pt agrees with plan and is stable for discharge. SHELBY MURPHY DO 09/01/20 0549: Supervisory-Addendum Brief Verification & Attestation Participated in pt care: history, MDM, physical Personally performed: exam, history, MDM, supervision of care Care discussed with: Medical Student Procedures: n/a Results interpretation: Verified all documentation Verification and Attestation of Medical Student E/M Service A medical student performed and documented this service in my presence. I reviewed and verified all information documented by the medical student and made modifications to such information, when appropriate. I personally performed the physical exam and medical decision making. Shelby Murphy, Sep 01, 2020,05:49 YOKO COLLINS MED STUDENT Aug 31, 2020 12:15 SHELBY MURPHY DO Sep 01, 2020 05:49
== END 2020-08-31 12:55 | disposition home or self-care (01) ==
LOC: EDUNIT# 10:21 → ER 10:25 → CSD 12:00
PROVIDERS: ADMIT Internal Medicine; ATTEND Internal Medicine
DX: I49.1 Atrial premature depolarization (principal); R07.89 Other chest pain; R05 Cough; R94.31 Abnormal electrocardiogram [ECG] [EKG]
CPT/HCPCS: 71045; 78452; 80053 ×2; 80061; 83735; 83874; 83880; 84443; 84484 ×2; 85025; 85027; 85379; 85610; 85730; 93005; 93017; 93041; 93306; 96374; 96376; 99284; A9502; G0378; 36415